=== PATIENT | male | born 1980 | race Caucasian/White ===

== ENCOUNTER → 2020-11-19 06:51 | Outpatient (CLI) | payer OTHER, SELFPAY ==
[2020-11-19 17:21] LABS: SARS-CoV-2 RNA PCR Negative
== END ==
PROVIDERS: PCP Internal Medicine; Visit Provider Nurse Practitioner
DX: Z20.822 Contact with and (suspected) exposure to COVID-19 (principal)
CPT/HCPCS: C9803; U0003; U0005

== ENCOUNTER → 2021-07-08 08:48 | Outpatient (CLI) | payer OTHER, SELFPAY ==
--- NOTE | ~2021-07-08 | XR_ITS ---
EXAMINATION: XR knee LT min 4V DATE: 07/08/2021 09:08 INDICATION: Left knee pain. TECHNIQUE: 4 views of left knee including standing views were obtained. COMPARISON: None. FINDINGS: Bone alignment is normal. No fracture. There is mild osteoarthritis of patellofemoral francisco rtment characterized by a tiny marginal osteophyte. No joint space narrowing. There is a small knee j oint effusion. IMPRESSION: 1. Mild left knee osteoarthritis. 2. Small left knee joint effusion. Reviewed, dictated and finalized at location A.
== END ==
PROVIDERS: PCP Internal Medicine; Visit Provider Clinical Nurse Specialist
DX: M17.12 Unilateral primary osteoarthritis, left knee (principal); M25.462 Effusion, left knee
CPT/HCPCS: 73564

== ENCOUNTER → 2022-07-23 09:09 | Outpatient (CLI) | payer OTHER, SELFPAY ==
--- NOTE | ~2022-07-23 | XR_ITS ---
EXAMINATION: XR wrist RT min 3V INDICATION: Right wrist pain TECHNIQUE: Four views of the right wrist are obtained. COMPARISON: None available FINDINGS: No fracture, dislocation, or subluxation. The bones, soft tissues, and joint spaces are nor mal. IMPRESSION: 1. No acute osseous abnormality. Reviewed, dictated and finalized at location B. [facility]
== END ==
PROVIDERS: PCP Internal Medicine; Visit Provider Clinical Nurse Specialist
DX: M25.531 Pain in right wrist (principal)
CPT/HCPCS: 73110

== ENCOUNTER 2022-09-16 16:45 | Outpatient (CLI) | payer OTHER, SELFPAY ==
--- NOTE | ~2022-09-16 | MR_ITS ---
MRI of the right wrist Technique: Coronal T1 weighted and proton density fat sat images, and axial and sagittal proton-densi ty and proton-density fat-sat images were acquired. Clinical History: Pain Findings: There is focal increased signal in the volar portion of the scapholunate ligament, suggesti ve of degenerative change or possibly partial thickness tear. No full-thickness tear evident. No wide suellen of the scapholunate interval. Lunotriquetral ligament is intact. Central articular disc of the T FCC is intact. No rupture of the TFCC identified. Bone marrow signals are essentially unremarkable. Joint spaces are well preserved, without erosive or degenerative change. No significant joint effusion. Flexor and extensor tendons of the wrist are unremarkable. No soft tissue mass identified. Visualized musculature unremarkable. No abnormal fluid collection identified. IMPRESSION: Degenerative change, or possibly partial interstitial tear of the volar portion of the scapholunate l igament. Dorsal band appears intact, and there is no widening of the scapholunate interval. No other significant findings. Reviewed, dictated and finalized at location . [employer] IMPRESSION: Degenerative change, or possibly partial interstitial tear of the volar portion of the scapholunate ligament. Dorsal band appears intact, and there is no wide suellen of the scapholunate interval. No other significant findings.
== END 2022-09-16 16:46 ==
PROVIDERS: PCP Internal Medicine; Visit Provider Clinical Nurse Specialist
DX: M25.531 Pain in right wrist (principal)
CPT/HCPCS: 73221